=== PATIENT | male | born 1960 | race Caucasian/White ===

== ENCOUNTER 2022-09-20 08:00 | Day surgery (SDC) | payer OTHER ==
[~2022-09-20] VITALS: Ht 167.6 cm; Wt 74.8 kg
[2022-09-20] MEDS ORDERED: diphenhydrAMINE 50 MG/ML VIAL ONE (08:31)
[2022-09-20] MEDS ORDERED: fentaNYL citrate 0.05 MG/ML VIAL ONE (08:31)
[2022-09-20] MEDS ORDERED: LIDOCAINE 2% 100 MG/5 ML UJET TP ONE (08:32)
[2022-09-20] MEDS ORDERED: MIDAZOLAM 5 MG/5 ML VIAL ONE (08:32)
[2022-09-20] MEDS ORDERED: INSULIN REGULAR, HUMAN 100 UNIT/ML VIAL IVP SCH (08:49)
[2022-09-20] MEDS ORDERED: MIDAZOLAM 2 MG/2 ML VIAL IVP ONE (12:45)
[2022-09-20] MEDS ORDERED: fentaNYL citrate 0.05 MG/ML VIAL IVP ONE (12:45)
[2022-09-20] MEDS ORDERED: diphenhydrAMINE 50 MG/ML VIAL IVP ONE (12:45)
== END 2022-09-20 10:25 | disposition home or self-care (01) ==
LOC: MDS 08:00 → MMU 08:00 → MDS 10:25
PROVIDERS: ATTEND Internal Medicine Gastroenterology
DX: Z12.11 Encounter for screening for malignant neoplasm of colon (principal); I10 Essential (primary) hypertension; E11.9 Type 2 diabetes mellitus without complications; M19.90 Unspecified osteoarthritis, unspecified site; Z90.49 Acquired absence of other specified parts of digestive tract; Z98.890 Other specified postprocedural states; Z79.84 Long term (current) use of oral hypoglycemic drugs; Z79.899 Other long term (current) drug therapy
CPT/HCPCS: 45378; J1200; J1815; J2250; J3010